=== PATIENT | male | born 1955 | race Caucasian/White ===

== ENCOUNTER 2017-05-20 07:27 | Day surgery (SDC) | payer BC ==
[2017-05-19 09:28] VITALS: BMI 30.4
[2017-05-20] MEDS ORDERED: MIDAZOLAM HCL 2 MG/2 ML SINGLE DOSE VIAL ONE ×2 (08:29)
[2017-05-20] MEDS ORDERED: LEVOFLOXACIN 500 MG PREMIX BAG IVPB ONE (08:33)
[2017-05-20] MEDS ORDERED: LEVOFLOXACIN 500 MG IVPB 100 ML IVPB ONE (08:35)
[2017-05-20] MEDS ORDERED: oxyCODONE HCL 5 MG TABLET PO PRN (08:43)
[2017-05-20] MEDS ORDERED: DEXTROSE 5%-0.45% SALINE 1,000 ML IV SCH (08:45)
[2017-05-20] MEDS ORDERED: PROPOFOL 20 ML ONE (08:48)
[2017-05-20] MEDS ORDERED: ONDANSETRON 4 MG/2 ML VIAL IVPUSH PRN (09:10)
[2017-05-20] MEDS ORDERED: IBUPROFEN 800 MG/8 ML IJ IVPB PRN (09:10)
[2017-05-20] MEDS ORDERED: LACTATED RINGERS SOLUTION 1,000 ML IV SCH (09:15)
[2017-05-20 10:14] VITALS: TEMP 97.5
[2017-05-20 11:46] VITALS: BP 101/57; PULSE 68
--- NOTE | 2017-05-21 07:21 | OP ---
DATE OF OPERATION: 05/20/2017 PREOPERATIVE DIAGNOSIS: Right distal ureteral stone. POSTOPERATIVE DIAGNOSIS: Right distal ureteral stone. PROCEDURE: Extracorporeal shockwave lithotripsy. SURGEON: Starla Lundberg MD INDICATION: Patient is a 62-year-old male noted to have a 6-mm stone in the right distal ureter. After treatment options were reviewed, patient was taken to the OR for ESWL. Risks, benefits, and alternatives discussed, including potential persistence of stone burden and potential need for additional procedures as a result. PROCEDURE IN DETAIL: After informed consent was obtained, patient was taken to the OR and placed supine on the fluoroscopy table. Under active fluoroscopy, a 6-mm stone was seen in the right UVJ area. Under fluoroscopic guidance, the stone was centered on the XYZ axis in the crosshairs and 3000 shocks were delivered. There appeared to be some fragmentation on fluoroscopy, although could not be clearly identified. However, active fluoroscopy was used throughout the procedure to confirm placement of the stone within the center of the crosshairs. Patient then awoke from anesthesia and transferred to the recovery room in stable condition. There were no complications. There was no blood loss. STARLA LUNDBERG M.D. [id number]
== END 2017-05-20 12:05 | disposition home or self-care (01) ==
LOC: JASU-SURG 07:27
PROVIDERS: ATTEND Urology
PROC: 0TF6XZZ Fragmentation in Right Ureter, External Approach (ICD-10-PCS; principal; 2017-05-20 08:15)
DX: N20.1 Calculus of ureter (principal)
CPT/HCPCS: 94760